=== PATIENT | male | born 1970 | race Caucasian/White ===

== ENCOUNTER 2021-10-06 05:45 | Day surgery (SDC) | payer OTHER ==
[2021-10-01 16:23] LABS: BASOPHILS # (AUTO) 0.1 X10'3 (0-0.2); BASOPHILS % (AUTO) 0.6 % (0-1); EOSINOPHILS # (AUTO) 0.2 X10'3 (0-0.9); EOSINOPHILS % (AUTO) 1.5 % (0-6); LYMPHOCYTES # (AUTO) 1.8 X10'3 (1.1-4.8); LYMPHOCYTES % (AUTO) 15.8 % (21-51); MEAN CORPUSCULAR HEMOGLOBIN 28.8 PG (27.0-31.0); MEAN CORPUSCULAR HGB CONC 33.8 g/dL (33.0-36.5); MONOCYTES # (AUTO) 0.9 X10'3 (0-0.9); MONOCYTES % (AUTO) 7.9 % (2-12); NEUTROPHILS # (AUTO) 8.3 X10'3 (1.8-7.7); NEUTROPHILS % (AUTO) 74.2 % (42-75); PRE OP HEMATOCRIT 42.2 % (42.0-52.0); PRE OP HEMOGLOBIN 14.3 g/dL (14.0-17.9); PRE OP PLATELET COUNT 294 X10'3 (140-440); RED BLOOD COUNT 4.97 X10'6 (4.70-6.10)
[2021-10-01 16:55] LABS: ALBUMIN 3.9 G/DL (3.4-5.0); ALKALINE PHOSPHATASE 65 IU/L (46-116); BLOOD UREA NITROGEN 14 MG/DL (7-18); BUN/CREATININE RATIO 10.5 (5.4-32.0); CALCIUM 8.7 MG/DL (8.5-10.1); CHLORIDE 104 MMOL/L (99-107); CREATININE 1.33 MG/DL (0.60-1.10); PRE OP ALT 38 U/L (30-65); PRE OP ANION GAP 8 (8-16); PRE OP AST 18 U/L (10-37); PRE OP BILIRUB, TOTAL 0.3 MG/DL (0.0-1.0); PRE OP GLUCOSE 88 MG/DL (70-104); PRE OP POTASSIUM 4.4 MMOL/L (3.4-5.1); PRE OP SODIUM 137 MMOL/L (135-145); TOTAL PROTEIN 7.8 G/DL (6.4-8.2); eGFR 56 ML/MIN
[2021-10-06] VITALS (10 sets, daily range): BP systolic 114–142; BP diastolic 71–95
[~2021-10-06] VITALS: Ht 185.4 cm; Wt 122.1 kg
[~2021-10-06 05:45] MED LIST: NO HOME MEDS; cefazolin/dext.iso 2gm/50ml IV ONE; famotidine 20mg tablet PO ONE; ringers solution, lacted 1,000 ML IV SCH
[2021-10-06] MEDS ORDERED: BUPIVAcaine/PF 2.5 mg/ml (0.25%) 30ml vial ONE (06:26)
[2021-10-06 07:36] LABS: CLARITY,URINE CLEAR (Clear); COLOR,URINE YELLOW (Yellow); GLUCOSE, URINE NEGATIVE (Neg); KETONES,URINE NEGATIVE (Neg); LEUKOCYTE ESTERASE ,URINE NEGATIVE (Neg); NITRITES, URINE NEGATIVE (Neg); OCCULT BLOOD,URINE NEGATIVE (Neg); PH,URINE 5.5 (4.8-8.0); PROTEIN,URINE NEGATIVE (Neg); UROBILINOGEN,URINE 0.2 E.U/dL (0.2-1.0)
[2021-10-06 07:38] LABS: UA COLLECTION TYPE CLN CATCH MIDSTREAM
[2021-10-06] MEDS ORDERED: glycopyrrolate 0.2mg/ml inj ONE (08:07)
[2021-10-06] MEDS ORDERED: sevoflurane 250ml liquid IH ONE (08:07)
[2021-10-06] MEDS ORDERED: neostigmine methylsulfate 1 MG/ML 10ml vial ONE (08:07)
[2021-10-06] MEDS ORDERED: fentaNYL/PF 50MCG/1 ML 2ML syringe ONE ×2 (08:17)
[2021-10-06] MEDS ORDERED: midazolam 1 mg/ML 2ml injection ONE (08:17)
[2021-10-06] MEDS ORDERED: rocuronium 10mg/ml inj IV ONE (09:08)
[2021-10-06] MEDS ORDERED: propofol inj 20 ML IV ONE (09:08)
[2021-10-06] MEDS ORDERED: dexamethasone sod phosphate 4mg/ml inj. ONE (09:11)
[2021-10-06] MEDS ORDERED: ondansetron/PF 4mg/2ml inj ONE (09:11)
[2021-10-06] MEDS ORDERED: sugammadex 200mg/2ml injection IV ONE (09:20)
[2021-10-06] MEDS ORDERED: morphine 2 MG/ML inj. syringe IV PRN ×2 (09:30→09:45)
[2021-10-06] MEDS ORDERED: ringers solution, lacted 1,000 ML IV SCH (09:30)
[2021-10-06] MEDS ORDERED: ondansetron/PF 4mg/2ml inj IV PRN ×2 (09:30→09:45)
[2021-10-06] MEDS ORDERED: morphine 4 MG/ML inj SYRINge IV PRN ×2 (09:30→09:45)
[2021-10-06] MEDS ORDERED: meperidine/PF 25mg/ml syringe IV PRN ×4 (09:30→09:45)
[2021-10-06] MEDS ORDERED: proCHLORperazine 10 MG/2 ml inj IV PRN (09:30)
--- NOTE | 2021-10-06 09:30 | NUR ---
Received from OR via [facility], accompanied by Anesthesiologist and report given by Anesthesiologist. PATIENT WAKING UP, NO S/S OF PAIN, V/S WNL, SCD ON, 20G TO RUE, LAP SURGICAL SITES TO ABDOMEN CDI.
[2021-10-06] MEDS ORDERED: morphine 4 MG/ML inj SYRINge ONE ×2 (09:46→09:54)
[2021-10-06] MEDS ORDERED: oxyCODONE/APAP 5-325mg tablet PO ONE (09:50)
[2021-10-06] MEDS: meperidine/PF 25mg/ml syringe IV PRN ×2 (09:58→10:16)
--- NOTE | 2021-10-06 10:40 | NUR ---
PATIENT A&OX4, STATES MODERATE PAIN PERCETT GIVEN, V/S WNL, SCD ON, 20G TO RUE D/C, LAP SURGICAL SITES TO ABDOMEN CDI. I HAVE REVIEWED D/C INSTRUCTIONS WITH PATIENT AND HE HAS VERBALIZED UNDERSTANDING. PATIENT D/C HOME WITH ALL BELONGINGS AND HIS GAVE TRANSPORT.
--- NOTE | 2021-10-13 09:45 | NUR ---
4MG IV MORPHINE GIVEN BUT WOULD NOT SCAN TO BE DOCUMENTED FOR DOCUMENTATION SO MED DOCUMENTED HERE FOR PATIENT C/O PAIN TO ABDOMEN.
== END 2021-10-06 10:40 | disposition home or self-care (01) ==
LOC: PAS 05:45
PROVIDERS: ATTEND Surgery
DX: K42.9 Umbilical hernia without obstruction or gangrene (principal); F98.8 Other specified behavioral and emotional disorders with onset usually occurring in childhood and adolescence; I10 Essential (primary) hypertension; F43.10 Post-traumatic stress disorder, unspecified; E66.9 Obesity, unspecified; Z68.35 Body mass index [BMI] 35.0-35.9, adult; Z86.16 Personal history of COVID-19; Z20.822 Contact with and (suspected) exposure to COVID-19; Z98.890 Other specified postprocedural states; Z79.899 Other long term (current) drug therapy
CPT/HCPCS: 36415; 49652; 80053; 81003; 82948; 85025; 93005; C1781; J0690; J1100; J2175; J2250; J2270; J2405; J2704; J2710; J3010; J3490; J7030; J7120; U0003; U0005; Z7506; Z7508; Z7512; A4215; A4618; A7000